=== PATIENT | male | born 1965 | race Caucasian/White ===

== ENCOUNTER → 2024-08-29 11:25 | Outpatient (REF) | payer OTHER, SELFPAY | LOC: HWRCS 11:25 | PROVIDERS: ATTENDING PHYSICIAN Nurse Practitioner; FAMILY PHYSICIAN Internal Medicine | DX: R06.02 Shortness of breath (principal); R07.89 Other chest pain | CPT/HCPCS: 78452; 93017; A9500; J2785 ==

== ENCOUNTER 2025-02-16 10:08 | Day surgery (SDC) | payer OTHER, SELFPAY ==
[2025-02-08 09:05] VITALS: BMI 30.2
[2025-02-08 10:12] LABS: Hematocrit 38.2 % (39.0-52.0); Hemoglobin 12.8 g/dL (13.0-18.0); Mean Corp Hgb Conc. 33.5 g/dL (33.0-37.0); Mean Corpuscular Volume 91.4 fL (80.0-94.0); Nucleated Red Blood Cells % 0 % (-); Platelet Count 190 10^3/uL (130-400); Red Cell Dist. Width 12.6 % (11.5-14.5)
[2025-02-08 10:19] LABS: INR 1.29; PT 16.6 Sec (11.4-14.6)
[2025-02-08 10:40] LABS: ALT (SGPT) 24 U/L (0-50); AST (SGOT) 22 U/L (17-59); Albumin 4.4 g/dl (3.5-5.0); Alkaline Phosphatase 55 U/L (38-126); Blood Urea Nitrogen 18 mg/dl (9-20); Calcium 8.7 mg/dl (8.4-10.2); Carbon Dioxide 28 mmol/L (22-30); Chloride 108 mmol/L (98-107); Estimated Creatinine Clearance 119 ml/min; Glucose 102 mg/dl (70-99); Potassium 4.4 mmol/L (3.5-5.1); Sodium 143 mmol/L (135-145); Total Protein 6.9 g/dl (6.3-8.2); eGFR > 60.00
--- NOTE | 2025-02-16 07:51 | W.ICD.CONTRA ---
Post ICD/ANESTHESIA RESIDENT-D
-
History of NE?: Yes
LV Function
Left ventricular function study result?: Ejection Fraction >/= 40%
ACEI/ARB/ARNI
Patient already on ACEI/ARB/ARNI: Yes
Beta-Hyun
Patient already on Beta Hyun: Yes
[2025-02-16 10:42] VITALS: BP 143/97; BMI 31.2
--- NOTE | 2025-02-16 13:21 | ITS.CL.ICD ---
Event Crew Technician - ICD
Implantable Cardioverter Defibrillator
Procedure Report:
Date of Procedure: February 16, 2025
Patient : 1965
Procedures: BiV ICD generator change
Indication: 1) Class III CHF, LVEF 20%, 2) right bundle Branch Block, QRS 150 ms; prior primary prevention device
Implants:
Pulse Generator: [employer]; Model# DTPA 2QQ; Serial#[id number] implanted today
Atrial Lead: [employer]: Model# 4574; Serial# [id number] implanted 2019
Right Ventricular Lead: [employer]; Model# 6935; Serial# [id number] implanted 2019
Left Ventricular Lead: [employer]; Model# 4298; Serial# [id number] implanted 2019
Explants:
[employer]tronic product number [id number] serial number [id number] implanted 2019 and removed today
Technique: The patient was prepped and draped in the usual fashion. Local anesthetic was applied to the left prepectoral subcutaneous tissue. A 4 inch incision was made. The left axillary vein was accessed��without difficulty. A subcutaneous pocket
was CREATED. Hemostasis was excellent. A right heart catheterization was performed. The leads were introduced with hemostatic peel away introducer sheaths. The right ventricular lead was placed at the right ventricular apex. The atrial lead was
placed in the right atrial appendage. The coronary sinus was accessed with the aid of the Attain system. The left ventricular lead was placed in the [ ]. 10 volt pacing did not capture the diaphragm. The leads were secured to the pectoralis muscle
and fascia. The leads were appropriately attached to the device. The pocket was irrigated with antibiotic solution. The device and leads were placed in the pocket and the device was secured to pectoralis muscle and facia. The incision was closed
with absorbable sutures. The estimated blood loss was minimal. There were no complications. Device based testing was performed as described below.
System Analysis:
RA lead: P: 1.6 mV; Threshold: 1.0 V @ 0.5 ms; Impedance: 460 ohms.
RV lead: R: 4.8 mV; Threshold: 1.0 V @ 0.5 ms; Impedance: 360 ohms.
LV lead: R: 5.0 mV; Threshold: 2.5 V @ 0.5 ms; Impedance: 870 ohms.
Final Programming: Tachy: VT/VF:188; Chau: DDDR 60-120.
Conclusion: Uncomplicated ICD generator change
Recommendation: Routine post BiV ICD care. Resume ThursdayFebruary 18
cc: Dr. Lizandro Mistry
[2025-02-16 13:29] VITALS: BP 136/94
[2025-02-16 13:44] VITALS: BP 134/87
[2025-02-16 13:59] VITALS: BP 132/78
== END 2025-02-16 14:30 | disposition home or self-care (01) ==
LOC: CATH 10:08
PROVIDERS: ATTENDING PHYSICIAN Internal Medicine Cardiovascular Disease; FAMILY PHYSICIAN Internal Medicine
DX: I48.19 Other persistent atrial fibrillation (principal); Z45.02 Encounter for adjustment and management of automatic implantable cardiac defibrillator; I45.10 Unspecified right bundle-branch block; E66.9 Obesity, unspecified; E78.5 Hyperlipidemia, unspecified; I11.0 Hypertensive heart disease with heart failure; I25.2 Old myocardial infarction; I50.32 Chronic diastolic (congestive) heart failure; I49.5 Sick sinus syndrome; I25.5 Ischemic cardiomyopathy; I95.1 Orthostatic hypotension; Z79.899 Other long term (current) drug therapy; Z87.891 Personal history of nicotine dependence; Z95.5 Presence of coronary angioplasty implant and graft; R09.89 Other specified symptoms and signs involving the circulatory and respiratory systems; K21.9 Gastro-esophageal reflux disease without esophagitis; Z79.01 Long term (current) use of anticoagulants; Z79.02 Long term (current) use of antithrombotics/antiplatelets
CPT/HCPCS: 33264; 36415; 80053; 85025; 85610; 93005; C1882